=== PATIENT | female | born 1985 ===

== ENCOUNTER 2022-03-09 10:16 | Day surgery (SDC) | payer BC ==
[~2022-03-09 10:16] MED LIST: Propofol 200 MG/20 ML SDV ONE
[2022-03-09] MEDS ORDERED: Lactated Ringers 1,000 ML IV SCH (11:00)
== END 2022-03-09 12:30 | disposition home or self-care (01) ==
LOC: MW.SDS 10:16
PROVIDERS: ATTEND Surgery
DX: K63.5 Polyp of colon (principal); K62.89 Other specified diseases of anus and rectum; Z91.010 Allergy to peanuts; Z79.899 Other long term (current) drug therapy
CPT/HCPCS: 00811; 81025; J2704; J7120

== ENCOUNTER 2022-07-31 20:43 | Emergency (ER) | payer BC ==
[2022-07-31 21:34] LABS: BLOOD UREA NITROGEN,BUN 13 mg/dL (7.0-18.0); CARBON DIOXIDE,CO2 26.7 mmol/L (21.0-32.0); CHLORIDE,CL 101 mmol/L (98-107); GLUCOSE RANDOM 97 mg/dL (74-106); POTASSIUM,K 4.1 mmol/L (3.5-5.1); SODIUM,NA 138 mmol/L (136-145)
[2022-07-31 21:36] LABS: ESTIMATED GFR 114 mL/min (>60)
[2022-07-31] MEDS ORDERED: Ibuprofen 600 MG Tab PO ONE (22:20)
[2022-08-01] MEDS ORDERED: Iopamidol 755 MG/ML 500 ML Multipack Bottle IVPUSH STA (01:43)
== END 2022-08-01 03:20 | disposition home or self-care (01) ==
LOC: MW.ED 20:43
DX: R07.9 Chest pain, unspecified (principal)
CPT/HCPCS: 36415; 71045; 71275; 80053; 84484; 85025; 85379; 93005; 99285; Q9967; 93010; 99284